=== PATIENT | male | born 1980 | race Caucasian/White ===

== ENCOUNTER → 2018-05-01 | Outpatient (REF) ==
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
== END | disposition home or self-care (01) ==
LOC: RAD 09:56
PROVIDERS: ATTEND Nurse Practitioner Family
CPT/HCPCS: 73030

== ENCOUNTER 2018-07-17 15:40 | Outpatient (RCR) | payer OTHER | END 2018-08-14 08:46 | disposition home or self-care (01) | PROVIDERS: ATTEND Nurse Practitioner Family | DX: S40.012A Contusion of left shoulder, initial encounter (principal); W19.XXXA Unspecified fall, initial encounter; Y99.0 Civilian activity done for income or pay ==

== ENCOUNTER → 2018-08-20 | Outpatient (REF) ==
--- NOTE | 2018-08-20 11:56 | Diagnostic Imaging Report ---
EXAMINATION: Magnetic resonance imaging of the left shoulder without contrast. DATE: August 20, 2018. COMPARISON: Left shoulder radiographs May 01, 2018. HISTORY: 37-year-old male, fall. Left shoulder pain. TECHNIQUE: Magnetic Resonance Imaging sequences were performed of the shoulder without contrast. FINDINGS: ROTATOR CUFF, LIGAMENTS, TENDONS, AND MUSCLES: There is supraspinatus tendinopathy. There is a small intramuscular ganglion cyst within the supraspinatus which measures up to maximally 7 x 8 x 43 mm in size. There is a small 25% partial thickness interstitial tear of the supraspinatus tendon. The infraspinatus, teres minor, and subscapularis tendons are intact. There is no fatty muscle atrophy. The additional rotator cuff muscle signal is unremarkable. LONG HEAD OF BICEPS: The biceps labral attachment and long head of the biceps tendon is intact. The long head of the biceps tendon is normally positioned within the bicipital groove. GLENOHUMERAL JOINT: The humeral head is well positioned relative to the glenoid. The labrum is grossly intact. There is no identified paralabral cyst. The articular cartilage is grossly intact. There is no joint effusion. ACROMIOCLAVICULAR JOINT: There is widening of the acromioclavicular joint. The coracoclavicular and coracoacromial ligaments are intact. There are no pronounced degenerative related changes of the acromioclavicular joint. BONE: There is no os acromiale. There is very prominent edema like signal in the distal clavicle. The lateral margin of the distal clavicle is dysmorphic in appearance with at least partially corticated margins suggesting there is some component of chronicity. There is less prominent edema in the adjacent acromion. There is prominent fluid within the acromioclavicular joint as well as adjacent soft tissue edema. There is no identified acute appearing fracture. The additional bone marrow signal is unremarkable. BURSAE AND SOFT TISSUES: Additional bursal and soft tissue assessment already described above is unremarkable. IMPRESSION: 1. Supraspinatus tendinopathy with 25% partial thickness interstitial tear of the supraspinatus tendon with associated intramuscular ganglion cyst measuring 7 x 8 x 43 mm in size. 2. Very prominent edema in the distal clavicle and adjacent acromion with chronic appearing dysmorphic appearance of the distal clavicle. No identified acute appearing fracture. The appearance of the distal clavicle potentially could relate to stress induced osteolysis of the distal clavicle, or sequela of prior fracture with the current marrow edema relating to bone contusion. Hyperparathyroidism and rheumatoid arthritis would also be in the differential diagnosis. The edema in the acromion may relate to a bone contusion. 3. Abnormal widening of the acromioclavicular joint likely relating to sequela of acromioclavicular joint separation injury of uncertain exact age. This potentially could be acute. There is abnormal fluid within the acromioclavicular joint. The coracoclavicular and coracoacromial ligaments are intact. 4. Grossly intact labrum and unremarkable additional glenohumeral joint evaluation. Dictated by: Dictated on workstation # [id number]
== END | disposition home or self-care (01) ==
LOC: OCC 07:18
PROVIDERS: ATTEND Nurse Practitioner Family
CPT/HCPCS: 73221

== ENCOUNTER → 2022-01-04 | Outpatient (REF) ==
--- NOTE | 2022-01-04 11:11 | Diagnostic Imaging Report ---
INDICATION: Pain, injury COMPARISON: None available. TECHNIQUE: 3 radiographs right hand dated 01/04/2022. FINDINGS: No acute fracture or dislocation. No destructive osseous process. Scapholunate intervals within normal limits. No suspicious radiopaque foreign body. IMPRESSION: No acute osseous abnormality. Dictated by: Dictated on workstation # [id number]
== END ==
LOC: RAD 10:41
PROVIDERS: ATTEND Nurse Practitioner Family
DX: M79.641 Pain in right hand (principal)
CPT/HCPCS: 73130

== ENCOUNTER 2022-01-15 15:13 | Outpatient (RCR) | payer OTHER | END 2022-01-17 | disposition home or self-care (01) | PROVIDERS: ATTEND Nurse Practitioner Family | DX: S63.8X1D Sprain of other part of right wrist and hand, subsequent encounter (principal); S63.601D Unspecified sprain of right thumb, subsequent encounter; X58.XXXD Exposure to other specified factors, subsequent encounter ==

== ENCOUNTER 2022-02-13 15:38 | Outpatient (RCR) | payer OTHER | END 2022-02-17 | disposition home or self-care (01) | PROVIDERS: ATTEND Nurse Practitioner Family | DX: S63.8X1D Sprain of other part of right wrist and hand, subsequent encounter (principal); S63.601D Unspecified sprain of right thumb, subsequent encounter; X58.XXXD Exposure to other specified factors, subsequent encounter ==